=== PATIENT | female | born 2000 | race Caucasian/White ===

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

== ENCOUNTER 2021-04-02 09:16 | Emergency (ER) | payer SELFPAY ==
[~2021-04-02] VITALS: Ht 162.6 cm; Wt 76.4 kg
[~2021-04-02 09:16] MED LIST: DOCU-270 PO; FERR-89 PO; IBUP-2071 PO; PREN-217 PO
[2021-04-02 09:18] VITALS: BP 117/81
== END 2021-04-02 09:43 | disposition home or self-care (01) ==
LOC: EMS 09:16
DX: O47.1 False labor at or after 37 completed weeks of gestation (principal); Z3A.38 38 weeks gestation of pregnancy
CPT/HCPCS: 99281; Z7502